=== PATIENT | male | born 1985 | race African-American/Black ===

== ENCOUNTER 2025-02-25 20:38 | Emergency (ER) | payer SELFPAY ==
[2025-02-25 20:46] VITALS: BP 164/89; PULSE 105; RESP 16; TEMP 36.3; O2SAT 95
--- NOTE | 2025-02-25 23:39 | ED.GENADULT ---
HPI - General Adult General Chief complaint: Back Pain/Injury Stated complaint: lower back pain x3 days Time Seen by Provider: 02/25/25 23:12 History of Present Illness HPI narrative: 39-year-old male present to the emergency department for evaluation for lower back pain that radiates into his left hip radiates down to his left knee. 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 Patient denies any associated numbness or weakness. Patient has been taking Tylenol and ibuprofen without significant controlling his symptoms. Patient is uncomfortable appearing at time of evaluation. Patient has no prior history of sciatica. Patient denies any prior history of lower back surgeries. Patient denies any prior history of diabetes Related Data Allergies Allergy/AdvReac Type Severity Reaction Status Date / Time Penicillins AdvReac Intermediate Hives Verified 02/25/25 20:44 sulfamethoxazole (From AdvReac Intermediate Anaphylaxis Verified 02/25/25 20:44 Bactrim) trimethoprim (From Bactrim) AdvReac Intermediate Anaphylaxis Verified 02/25/25 20:44 Review of Systems Review of Systems: All systems reviewed & are unremarkable except as noted in HPI and below Exam Narrative: APPEARANCE: Well appearing, no pain, no distress, well-nourished. HEAD: normocephalic, atraumatic. EYES: PERRLA/EOMI, conjunctivae clear. NOSE: Normal no drainage EARS:TMS clear with good light reflex. THROAT: Pharynx clear, no exudate. NECK: Supple. No adenopathy, no masses. RESPIRATORY: Airway patent, respirations nonlabored. Clear to auscultation bilaterally, no rales, rhonchi, wheezing. CARDIOVASCULAR: Regular rate and rhythm without murmurs rubs or gallops. ABDOMINAL: Soft, nontender, nondistended, normal bowel sounds MUSCULOSKELETAL: tenderness to left lower back and left buttock NEURO: Alert. Cranial nerves II through XII intact. Good gait. Good coordination SKIN: Warm, dry. Normal Color Course Vital Signs Vital signs: Vital Signs Temperature 97.4 F L 02/25/25 20:46 Pulse Rate 105 H 02/25/25 20:46 Respiratory Rate 16 02/25/25 20:46 Blood Pressure 164/89 H 02/25/25 20:46 Pulse Oximetry 95 02/25/25 20:46 Oxygen Delivery Room Air 02/25/25 20:46 Temperature 97.4 F L 02/25/25 20:46 Pulse Rate 105 H 02/25/25 20:46 Respiratory Rate 16 02/25/25 20:46 Blood Pressure 164/89 H 02/25/25 20:46 Pulse Oximetry 95 02/25/25 20:46 Oxygen Delivery Room Air 02/25/25 20:46 Medical Decision Making MDM Narrative Medical decision making narrative: 39-year-old male presented emergency department for evaluation for lower back pain that radiates down his left leg. patient's physical exam was consistent with sciatica. Patient denies any specific incident injury so imaging would be of low yield. Patient denies any change in bowel bladder habits. Patient was treated with IM Toradol, IM steroids, p.o. Murdock and p.o. Flexeril. Patient will be discharged home with Medrol Dosepak and Murdock and Flexeril for pain control. Patient was encouraged of close follow-up with primary care physician. Differential Diagnosis Differential Diagnosis: lumbar fracture, lumbar strain, sciatica Vital Signs Vital Signs: Vital Signs Temperature 97.4 F L 02/25/25 20:46 Pulse Rate 105 H 02/25/25 20:46 Respiratory Rate 16 02/25/25 20:46 Blood Pressure 164/89 H 02/25/25 20:46 Pulse Oximetry 95 02/25/25 20:46 Oxygen Delivery Room Air 02/25/25 20:46 Temperature 97.4 F L 02/25/25 20:46 Pulse Rate 105 H 02/25/25 20:46 Respiratory Rate 16 02/25/25 20:46 Blood Pressure 164/89 H 02/25/25 20:46 Pulse Oximetry 95 02/25/25 20:46 Oxygen Delivery Room Air 02/25/25 20:46 Discharge Plan Discharge Clinical Impression: Sciatica Patient Disposition: Home Condition: Stable Instructions: Antibiotic Form, Sciatica (ED), Back Pain (ED) Additional Instructions: Medrol Dosepak as directed until completed. Flexeril for muscle spasm. Murdock for pain control. Have close follow-up with your primary care physician. If you have any worsening symptoms then please call or return to the emergency department. Patient Language: Yoruba Prescriptions: New cyclobenzaprine 10 mg tablet 10 mg PO BID PRN (Reason: muscle spasm) Qty: 14 0RF hydrocodone-acetaminophen 5-325 mg tablet 1 tablet PO Q12H PRN (Reason: pain) Qty: 14 0RF methylprednisolone [Medrol (Siva)] 4 mg tablets,dose pack See Rx Instructions .ROUTE .COMPLEX Qty: 21 0RF Rx Instructions: for 6 days Follow-up/Referrals: PHYSICIAN,[employer] [Primary Care Provider, Internal Medicine]
[2025-02-25] MEDS: HYDROcodone/acetaminophen (*CRX) 7.5-325 MG TABLET 1 TAB PO (23:43)
[2025-02-25] MEDS: dexAMETHasone SOD PHOS INJ 10 MG/ML 1 ML VIAL IM (23:44)
[2025-02-25] MEDS: CYCLOBENZAPRINE HCL 10 MG TABLET PO (23:44)
[2025-02-25] MEDS: KETOROLAC 30 MG/ML VIAL (*BKC) IM (23:44)
== END 2025-02-26 00:30 | disposition home or self-care (01) ==
PROVIDERS: Emergency Provider Emergency Medicine
DX: M54.42 Lumbago with sciatica, left side (principal)
CPT/HCPCS: 96372; 99284; A9270; J1100; J1885